=== PATIENT | male | born 1990 | race African-American/Black ===

== ENCOUNTER 2018-01-01 10:02 | Emergency (ER) | payer SELFPAY ==
[~2018-01-01] VITALS: Ht 180.3 cm; Wt 82.4 kg
[~2018-01-01 10:02] MED LIST: CLEOCIN300 MG PO; LORTAB 5-325 M1 EACH PO
[2018-01-01] MEDS ORDERED: PERIDEX473 ML MM (11:17)
[2018-01-01 11:58] VITALS: BP 118/72
== END 2018-01-01 12:00 | disposition home or self-care (01) ==
LOC: EME 10:02
DX: K05.10 Chronic gingivitis, plaque induced (principal); F17.210 Nicotine dependence, cigarettes, uncomplicated
CPT/HCPCS: 99281; 99283